=== PATIENT | female | born 1970 | race Caucasian/White ===

== ENCOUNTER → 2018-12-14 11:52 | Outpatient (CLI) | payer OTHER, SELFPAY ==
[2018-12-14 12:26] LABS: Basophils % 0.6 % (0.1-2.0); Eosinophils # 0.2 K/mm3 (0.0-0.4); Eosinophils % 10.2 % (0.1-12.0); Hemoglobin 11.8 g/dL (12.2-16.2); Lymphocytes # 1.1 K/mm3 (0.7-4.5); Mean Corpuscular HGB Conc 31.9 g/dL (31.8-35.4); Mean Corpuscular Hemoglobin 28.8 pg (27.0-31.2); Mean Platelet Volume 7.4 fl (7.4-10.4); Monocytes # 0.2 K/mm3 (0.1-1.0); Monocytes % 11.5 % (1.7-9.3); Neutrophils # 0.4 K/mm3 (1.8-7.8); Neutrophils % 20.8 % (37.0-80.0); Platelet Count 296 K/mm3 (142-424); Red Blood Count 4.12 M/mm3 (4.20-5.40); Red Cell Distribution Width 14.7 % (11.5-17.5)
[2018-12-14 12:29] LABS: MANUAL DIFFERENTIAL MANUAL DIFFERENTIAL (MANUAL DIFF)
[2018-12-14 14:02] LABS: Alanine Aminotransferase 16 U/L (12-78); Albumin Level 3.3 gm/dL (3.4-5.0); Albumin/Globulin Ratio 0.9 (1.1-1.8); Alkaline Phosphatase 55 U/L (46-116); Aspartate Amino Transferase 9 U/L (15-37); Bilirubin,Total 0.2 mg/dL (0.2-1.0); Blood Urea Nitrogen 16 mg/dL (7-18); Calcium 8.5 mg/dL (8.5-10.1); Carbon Dioxide 26 mmol/L (21.0-32.0); Chloride 106 mmol/L (98-107); Creatinine,Serum 0.62 mg/dL (0.55-1.02); Estimated Glomerular Filt Rate 102 ml/min (>60); Ferritin 13 ng/mL (8-388); GFR (African American) 123 ML/MIN (>60); Globulin 3.8 gm/dl (1.3-3.2); Glucose 84 mg/dL (74-106); Sodium 143 mmol/L (136-145); Total Protein,Serum 7.1 gm/dL (6.4-8.2)
[2018-12-14 18:20] LABS: Eosinophils % 8 % (0-3); Hypochromasia 1+; Lymphocytes % 59 % (10-50); Monocytes % 11 % (2-9); Neutrophils % 22 % (42-76); Total Cells Counted 100
[2018-12-14 18:21] LABS: Platelet Estimate Normal
[2018-12-15 08:18] LABS: Iron 40 ug/dL (27-159); UIBC 324 ug/dL (131-425)
[2018-12-15 13:20] LABS: Folate 10.7 ng/mL (>3.0); Iron Saturation 11 % (15-55); Vitamin B12 227 pg/mL (232-1245)
== END ==
PROVIDERS: Visit Provider Internal Medicine Medical Oncology
DX: D64.9 Anemia, unspecified (principal)
CPT/HCPCS: 36415; 80053; 82607; 82728; 82746; 83540; 83550; 85007; 85025

== ENCOUNTER 2018-12-21 11:29 | Outpatient (CLI) | payer OTHER, SELFPAY ==
[2018-12-21 11:47] VITALS: BP 117/74; PULSE 67; RESP 20; TEMP 36.2; O2SAT 99
[2018-12-21 11:53] VITALS: BMI 27.2
== END 2018-12-21 12:18 | disposition home or self-care (01) ==
LOC: INF 11:30
PROVIDERS: PCP Family Medicine; Visit Provider Internal Medicine Medical Oncology
DX: D72.819 Decreased white blood cell count, unspecified (principal)
CPT/HCPCS: 96372; J1442

== ENCOUNTER 2018-12-22 13:19 | Outpatient (CLI) | payer OTHER, SELFPAY ==
[2018-12-22 13:58] VITALS: BP 111/71; PULSE 75; RESP 18; O2SAT 95
== END 2018-12-22 14:00 | disposition home or self-care (01) ==
LOC: INF 13:19
PROVIDERS: Visit Provider Internal Medicine Medical Oncology
DX: D72.819 Decreased white blood cell count, unspecified (principal)
CPT/HCPCS: 96372

== ENCOUNTER 2018-12-25 08:55 | Outpatient (CLI) | payer OTHER, SELFPAY ==
[2018-12-25 09:45] VITALS: BP 115/81; PULSE 70; RESP 18; TEMP 36.6; O2SAT 98
== END 2018-12-25 09:53 | disposition home or self-care (01) ==
LOC: INF 09:01
PROVIDERS: Visit Provider Internal Medicine Medical Oncology
DX: D72.819 Decreased white blood cell count, unspecified (principal)
CPT/HCPCS: 96372

== ENCOUNTER 2018-12-26 09:45 | Outpatient (CLI) | payer OTHER, SELFPAY ==
[2018-12-26 09:53] VITALS: BP 107/59; PULSE 86; RESP 18; O2SAT 96
== END 2018-12-26 09:57 | disposition home or self-care (01) ==
LOC: INF 09:49
PROVIDERS: Visit Provider Internal Medicine Medical Oncology
DX: D72.819 Decreased white blood cell count, unspecified (principal)
CPT/HCPCS: 96372

== ENCOUNTER 2018-12-27 09:45 | Outpatient (CLI) | payer OTHER, SELFPAY ==
[2018-12-27 09:51] VITALS: BP 111/74; PULSE 79; RESP 18
== END 2018-12-27 09:53 | disposition home or self-care (01) ==
LOC: INF 09:48
PROVIDERS: Visit Provider Internal Medicine Medical Oncology
DX: D72.819 Decreased white blood cell count, unspecified (principal)
CPT/HCPCS: 96372

== ENCOUNTER → 2018-12-28 12:19 | Outpatient (CLI) | payer OTHER, SELFPAY ==
[2018-12-28 12:50] LABS: Basophils % 0.8 % (0.1-2.0); Eosinophils # 0.2 K/mm3 (0.0-0.4); Eosinophils % 6.1 % (0.1-12.0); Hematocrit 39.1 % (37.0-47.0); Hemoglobin 12.1 g/dL (12.2-16.2); Lymphocytes # 1.4 K/mm3 (0.7-4.5); Lymphocytes % 57.5 % (10-50); Mean Corpuscular Hemoglobin 27.3 pg (27.0-31.2); Mean Corpuscular Volume 88.1 fl (81-99); Monocytes # 0.3 K/mm3 (0.1-1.0); Monocytes % 11.3 % (1.7-9.3); Neutrophils # 0.6 K/mm3 (1.8-7.8); Neutrophils % 24.3 % (37.0-80.0); Platelet Count 305 K/mm3 (142-424); Red Blood Count 4.43 M/mm3 (4.20-5.40); Red Cell Distribution Width 14.8 % (11.5-17.5); White Blood Count 2.5 K/mm3 (4.8-10.8)
[2018-12-28 13:00] LABS: MANUAL DIFFERENTIAL MANUAL DIFFERENTIAL (MANUAL DIFF)
[2018-12-28 16:50] LABS: Eosinophils % 7 % (0-3); Lymphocytes % 56 % (10-50); Monocytes % 10 % (2-9); Neutrophils % 25 % (42-76); Platelet Estimate Slight Increase; RBC Morphology Normal; Total Cells Counted 100
== END ==
PROVIDERS: Visit Provider Internal Medicine Medical Oncology
DX: D70.9 Neutropenia, unspecified (principal)
CPT/HCPCS: 36415; 85007; 85025

== ENCOUNTER → 2019-01-02 10:21 | Outpatient (CLI) | payer OTHER, SELFPAY ==
[2019-01-02 10:19] VITALS: BMI 27.2
[2019-01-02 10:50] LABS: Basophils % 0.8 % (0.1-2.0); Eosinophils # 0.2 K/mm3 (0.0-0.4); Eosinophils % 5.5 % (0.1-12.0); Hematocrit 37.8 % (37.0-47.0); Hemoglobin 11.5 g/dL (12.2-16.2); Lymphocytes # 1.7 K/mm3 (0.7-4.5); Lymphocytes % 48.3 % (10-50); Mean Corpuscular HGB Conc 30.4 g/dL (31.8-35.4); Mean Corpuscular Hemoglobin 27.1 pg (27.0-31.2); Mean Platelet Volume 7.6 fl (7.4-10.4); Monocytes # 0.1 K/mm3 (0.1-1.0); Monocytes % 3.6 % (1.7-9.3); Neutrophils # 1.5 K/mm3 (1.8-7.8); Neutrophils % 41.9 % (37.0-80.0); Platelet Count 305 K/mm3 (142-424); Red Blood Count 4.25 M/mm3 (4.20-5.40); White Blood Count 3.6 K/mm3 (4.8-10.8)
--- NOTE | 2019-01-02 11:18 | PC.NURSE ---
pt did not get injection based on her anc of 1500; pt will return next week for another lab check and based on her number she will get the neupogen injection
== END ==
PROVIDERS: Visit Provider Internal Medicine Medical Oncology
DX: D70.0 Congenital agranulocytosis (principal); E53.8 Deficiency of other specified B group vitamins; D50.9 Iron deficiency anemia, unspecified
CPT/HCPCS: 36415; 85025

== ENCOUNTER 2019-01-03 10:30 | Outpatient (CLI) | payer OTHER, SELFPAY ==
[2019-01-03 10:50] VITALS: BP 115/66; PULSE 69; RESP 18
== END 2019-01-03 10:55 | disposition home or self-care (01) ==
LOC: INF 10:44
PROVIDERS: Visit Provider Internal Medicine Medical Oncology
DX: D70.0 Congenital agranulocytosis (principal); E53.8 Deficiency of other specified B group vitamins; D50.9 Iron deficiency anemia, unspecified
CPT/HCPCS: 96372

== ENCOUNTER 2019-01-09 09:30 | Outpatient (CLI) | payer OTHER, SELFPAY ==
[2019-01-09 09:34] VITALS: BMI 27.4
[2019-01-09 09:42] VITALS: BP 120/75; PULSE 91; RESP 18; O2SAT 97
[2019-01-09 09:51] LABS: Basophils % 0.6 % (0.1-2.0); Eosinophils # 0.2 K/mm3 (0.0-0.4); Eosinophils % 4.8 % (0.1-12.0); Hematocrit 37.1 % (37.0-47.0); Hemoglobin 11.6 g/dL (12.2-16.2); Lymphocytes # 1.2 K/mm3 (0.7-4.5); Lymphocytes % 37.5 % (10-50); Mean Corpuscular HGB Conc 31.3 g/dL (31.8-35.4); Mean Corpuscular Hemoglobin 27.8 pg (27.0-31.2); Mean Corpuscular Volume 88.6 fl (81-99); Mean Platelet Volume 7.4 fl (7.4-10.4); Monocytes # 0.2 K/mm3 (0.1-1.0); Monocytes % 6.9 % (1.7-9.3); Neutrophils # 1.6 K/mm3 (1.8-7.8); Neutrophils % 50.2 % (37.0-80.0); Platelet Count 319 K/mm3 (142-424); Red Blood Count 4.19 M/mm3 (4.20-5.40); Red Cell Distribution Width 15.4 % (11.5-17.5); White Blood Count 3.1 K/mm3 (4.8-10.8)
== END 2019-01-09 10:00 | disposition home or self-care (01) ==
LOC: INF 09:33
PROVIDERS: Visit Provider Internal Medicine Medical Oncology
DX: D70.0 Congenital agranulocytosis (principal); E53.8 Deficiency of other specified B group vitamins; D50.9 Iron deficiency anemia, unspecified
CPT/HCPCS: 36415; 85025; 96372

== ENCOUNTER 2019-01-19 09:45 | Outpatient (CLI) | payer OTHER, SELFPAY ==
[2019-01-19 09:45] VITALS: BMI 26.6
[2019-01-19 10:00] LABS: Basophils % 1.6 % (0.1-2.0); Eosinophils # 0.3 K/mm3 (0.0-0.4); Hematocrit 39.9 % (37.0-47.0); Lymphocytes # 1.4 K/mm3 (0.7-4.5); Mean Corpuscular HGB Conc 30.2 g/dL (31.8-35.4); Mean Corpuscular Hemoglobin 29.1 pg (27.0-31.2); Mean Corpuscular Volume 96.5 fl (81-99); Mean Platelet Volume 8.5 fl (7.4-10.4); Monocytes # 0.2 K/mm3 (0.1-1.0); Monocytes % 8.6 % (1.7-9.3); Neutrophils # 0.5 K/mm3 (1.8-7.8); Neutrophils % 19.8 % (37.0-80.0); Platelet Count 248 K/mm3 (142-424); Red Blood Count 4.14 M/mm3 (4.20-5.40); Red Cell Distribution Width 16.1 % (11.5-17.5); White Blood Count 2.3 K/mm3 (4.8-10.8)
[2019-01-19 10:06] LABS: MANUAL DIFFERENTIAL MANUAL DIFFERENTIAL (MANUAL DIFF)
[2019-01-19 10:37] VITALS: BP 119/81; PULSE 80; RESP 18; O2SAT 96
[2019-01-19 11:15] LABS: Anisocytosis 1+; Eosinophils % 11 % (0-3); Lymphocytes % 56 % (10-50); Macrocytosis 1+; Monocytes % 10 % (2-9); Myelocytes % 5 (0-1); Neutrophils % 13 % (42-76); Platelet Estimate Normal; Total Cells Counted 100
== END 2019-01-19 10:39 | disposition home or self-care (01) ==
LOC: INF 09:46
PROVIDERS: Visit Provider Internal Medicine Medical Oncology
DX: D72.819 Decreased white blood cell count, unspecified (principal)
CPT/HCPCS: 36415; 85007; 85025; 96372; J1442

== ENCOUNTER 2019-01-24 09:35 | Outpatient (CLI) | payer OTHER, SELFPAY ==
[2019-01-24 09:35] VITALS: BP 117/69; PULSE 64; RESP 18; O2SAT 99
[2019-01-24 09:43] VITALS: BMI 26.9
[2019-01-24 10:23] LABS: Basophils % 0.8 % (0.1-2.0); Eosinophils # 0.1 K/mm3 (0.0-0.4); Eosinophils % 6.2 % (0.1-12.0); Hematocrit 38.1 % (37.0-47.0); Hemoglobin 11.6 g/dL (12.2-16.2); Lymphocytes # 1.4 K/mm3 (0.7-4.5); Lymphocytes % 57.9 % (10-50); Mean Corpuscular HGB Conc 30.4 g/dL (31.8-35.4); Mean Corpuscular Volume 95.4 fl (81-99); Mean Platelet Volume 8.6 fl (7.4-10.4); Monocytes # 0.2 K/mm3 (0.1-1.0); Monocytes % 7.4 % (1.7-9.3); Neutrophils # 0.6 K/mm3 (1.8-7.8); Neutrophils % 27.7 % (37.0-80.0); Platelet Count 229 K/mm3 (142-424); Red Cell Distribution Width 16.2 % (11.5-17.5); White Blood Count 2.3 K/mm3 (4.8-10.8)
[2019-01-24 10:31] LABS: MANUAL DIFFERENTIAL MANUAL DIFFERENTIAL (MANUAL DIFF)
[2019-01-24 11:23] LABS: Eosinophils % 4 % (0-3); Lymphocytes % 56 % (10-50); Monocytes % 7 % (2-9); Myelocytes % 1 (0-1); Neutrophils % 23 % (42-76); Total Cells Counted 100
[2019-01-24 11:24] LABS: Anisocytosis 1+; Hypochromasia 1+; Macrocytosis 1+; Platelet Estimate Normal
== END 2019-01-24 11:00 | disposition home or self-care (01) ==
LOC: INF 09:41
PROVIDERS: Visit Provider Internal Medicine Medical Oncology
DX: D70.0 Congenital agranulocytosis (principal); E53.8 Deficiency of other specified B group vitamins; D50.9 Iron deficiency anemia, unspecified
CPT/HCPCS: 36415; 85007; 85025; 96372; J1442

== ENCOUNTER 2019-02-01 12:53 | Outpatient (CLI) | payer OTHER, SELFPAY ==
[2019-02-01 12:45] VITALS: BMI 27.1
[2019-02-01 13:03] LABS: Basophils % 0.5 % (0.1-2.0); Eosinophils # 0.2 K/mm3 (0.0-0.4); Eosinophils % 3.8 % (0.1-12.0); Hematocrit 39.1 % (37.0-47.0); Hemoglobin 11.9 g/dL (12.2-16.2); Lymphocytes # 1.4 K/mm3 (0.7-4.5); Lymphocytes % 31.8 % (10-50); Mean Corpuscular HGB Conc 30.4 g/dL (31.8-35.4); Mean Corpuscular Hemoglobin 27.8 pg (27.0-31.2); Mean Corpuscular Volume 91.6 fl (81-99); Mean Platelet Volume 7.6 fl (7.4-10.4); Monocytes # 0.2 K/mm3 (0.1-1.0); Monocytes % 3.4 % (1.7-9.3); Neutrophils # 2.6 K/mm3 (1.8-7.8); Neutrophils % 60.5 % (37.0-80.0); Platelet Count 277 K/mm3 (142-424); Red Blood Count 4.27 M/mm3 (4.20-5.40); Red Cell Distribution Width 15.5 % (11.5-17.5); White Blood Count 4.3 K/mm3 (4.8-10.8)
--- NOTE | 2019-02-01 13:38 | PC.NURSE ---
02/01/19 1315 Pt's ANC 2600, does not need Neupogen today. Appt scheduled for next week 02/06/19 at 10:00 am for labs
== END 2019-02-01 13:20 | disposition home or self-care (01) ==
LOC: INF 12:53
PROVIDERS: Visit Provider Internal Medicine Medical Oncology
DX: D72.819 Decreased white blood cell count, unspecified (principal)
CPT/HCPCS: 36415; 85025

== ENCOUNTER 2019-02-13 09:35 | Outpatient (CLI) | payer OTHER, SELFPAY ==
[2019-02-13 09:43] VITALS: BMI 26.3
[2019-02-13 10:43] LABS: Basophils % 1.1 % (0.1-2.0); Eosinophils # 0.1 K/mm3 (0.0-0.4); Eosinophils % 6.4 % (0.1-12.0); Hematocrit 39.2 % (37.0-47.0); Hemoglobin 12.3 g/dL (12.2-16.2); Lymphocytes # 1.1 K/mm3 (0.7-4.5); Lymphocytes % 47.7 % (10-50); Mean Corpuscular HGB Conc 31.5 g/dL (31.8-35.4); Mean Corpuscular Volume 92.1 fl (81-99); Mean Platelet Volume 7.6 fl (7.4-10.4); Monocytes # 0.2 K/mm3 (0.1-1.0); Monocytes % 10.2 % (1.7-9.3); Neutrophils # 0.8 K/mm3 (1.8-7.8); Neutrophils % 34.6 % (37.0-80.0); Platelet Count 268 K/mm3 (142-424); Red Blood Count 4.25 M/mm3 (4.20-5.40); Red Cell Distribution Width 15.2 % (11.5-17.5); White Blood Count 2.2 K/mm3 (4.8-10.8)
--- NOTE | 2019-02-13 10:45 | PC.NURSE ---
1045-pt's anc 0.8 so patient will not need neupogen injection today. pt will return in 2 weeks.
[2019-02-15 08:19] LABS: Vitamin B12 1074 pg/mL (232-1245)
== END 2019-02-13 10:45 | disposition home or self-care (01) ==
LOC: INF 09:41
PROVIDERS: Visit Provider Internal Medicine Medical Oncology
DX: D70.9 Neutropenia, unspecified (principal)
CPT/HCPCS: 82607; 85025

== ENCOUNTER → 2019-02-27 11:30 | Outpatient (CLI) | payer OTHER, SELFPAY ==
[2019-02-27 10:30] VITALS: BP 112/74; PULSE 68; RESP 20; TEMP 36.9; O2SAT 95
[2019-02-27 11:13] VITALS: BMI 27.7
[2019-02-27 11:29] LABS: Basophils % 0.7 % (0.1-2.0); Eosinophils # 0.2 K/mm3 (0.0-0.4); Eosinophils % 5.5 % (0.1-12.0); Hemoglobin 13.1 g/dL (12.2-16.2); Lymphocytes # 1.1 K/mm3 (0.7-4.5); Lymphocytes % 40.9 % (10-50); Mean Corpuscular HGB Conc 31.9 g/dL (31.8-35.4); Mean Corpuscular Volume 94.1 fl (81-99); Mean Platelet Volume 6.8 fl (7.4-10.4); Monocytes # 0.3 K/mm3 (0.1-1.0); Neutrophils # 1.2 K/mm3 (1.8-7.8); Platelet Count 299 K/mm3 (142-424); Red Blood Count 4.36 M/mm3 (4.20-5.40); Red Cell Distribution Width 14.8 % (11.5-17.5); White Blood Count 2.7 K/mm3 (4.8-10.8)
--- NOTE | 2019-02-27 14:37 | PC.NURSE ---
PT ARRIVED TODAY STATING THAT SHE WOULD PROB NOT CONTINUE TO DRIVE BACK AND FORTH HERE EVERY TWO WEEKS; SHE STATES THAT SHE DOESNT FEEL ANY BETTER EVEN THOUGH HER LABS SHOW IMPROVEMENT.DAUGHTER WAS WITH THE PATIENT; LABS WERE CHECKED AND BASED ON HER LABS THE PATIENT DID NOT GET ANY MEDICATION. PT STATED THAT SHE WOULD NOT BE BACK TO INFUSION BUT SHE WOULD FOLLOW BACK UP WITH THE MD
== END | disposition home or self-care (01) ==
LOC: INF 11:54
PROVIDERS: Visit Provider Internal Medicine Medical Oncology
DX: D70.9 Neutropenia, unspecified (principal)
CPT/HCPCS: 36415; 85025

== ENCOUNTER → 2019-04-12 12:20 | Outpatient (CLI) | payer OTHER, SELFPAY ==
[2019-04-12 13:19] LABS: Basophils % 0.6 % (0.1-2.0); Eosinophils # 0.2 K/mm3 (0.0-0.4); Eosinophils % 7.6 % (0.1-12.0); Hematocrit 41.2 % (37.0-47.0); Hemoglobin 12.6 g/dL (12.2-16.2); Lymphocytes # 1.6 K/mm3 (0.7-4.5); Lymphocytes % 54.1 % (10-50); Mean Corpuscular HGB Conc 30.7 g/dL (31.8-35.4); Mean Corpuscular Volume 94.5 fl (81-99); Monocytes # 0.5 K/mm3 (0.1-1.0); Monocytes % 15.4 % (1.7-9.3); Neutrophils # 0.7 K/mm3 (1.8-7.8); Neutrophils % 22.2 % (37.0-80.0); Platelet Count 379 K/mm3 (142-424); Red Blood Count 4.36 M/mm3 (4.20-5.40); Red Cell Distribution Width 13.8 % (11.5-17.5)
[2019-04-12 13:32] LABS: MANUAL DIFFERENTIAL MANUAL DIFFERENTIAL (MANUAL DIFF)
[2019-04-12 15:43] LABS: Eosinophils % 7 % (0-3); Hypochromasia 2+; Lymphocytes % 58 % (10-50); Monocytes % 9 % (2-9); Neutrophils % 22 % (42-76); Total Cells Counted 100
[2019-04-12 15:44] LABS: Platelet Estimate Normal
[2019-04-13 16:54] LABS: Vitamin B12 358 pg/mL (232-1245)
== END ==
PROVIDERS: Visit Provider Internal Medicine Medical Oncology
DX: D70.9 Neutropenia, unspecified (principal)
CPT/HCPCS: 36415; 82607; 85007; 85025

== ENCOUNTER → 2019-06-14 13:51 | Outpatient (CLI) | payer OTHER, SELFPAY ==
[2019-06-14 14:13] LABS: Basophils % 0.5 % (0.1-2.0); Eosinophils # 0.2 K/mm3 (0.0-0.4); Eosinophils % 4.1 % (0.1-12.0); Hematocrit 37.3 % (37.0-47.0); Hemoglobin 11.9 g/dL (12.2-16.2); Lymphocytes # 1.7 K/mm3 (0.7-4.5); Mean Corpuscular HGB Conc 31.7 g/dL (31.8-35.4); Mean Corpuscular Hemoglobin 29.5 pg (27.0-31.2); Mean Platelet Volume 8.3 fl (7.4-10.4); Monocytes # 0.2 K/mm3 (0.1-1.0); Monocytes % 5.6 % (1.7-9.3); Neutrophils # 1.7 K/mm3 (1.8-7.8); Neutrophils % 45.8 % (37.0-80.0); Platelet Count 320 K/mm3 (142-424); Red Blood Count 4.01 M/mm3 (4.20-5.40); Red Cell Distribution Width 14.9 % (11.5-17.5); White Blood Count 3.8 K/mm3 (4.8-10.8)
[2019-06-14 15:49] LABS: Ferritin 16 ng/mL (8-388)
[2019-06-16 08:31] LABS: Iron 32 ug/dL (27-159); UIBC 346 ug/dL (131-425)
[2019-06-18 06:35] LABS: Iron Saturation 8 % (15-55)
[2019-06-18 06:38] LABS: Vitamin B12 588 pg/mL (232-1245)
== END ==
PROVIDERS: Visit Provider Internal Medicine Medical Oncology
DX: D70.9 Neutropenia, unspecified (principal); D50.9 Iron deficiency anemia, unspecified; E53.8 Deficiency of other specified B group vitamins
CPT/HCPCS: 36415; 82607; 82728; 83540; 83550; 85025